=== PATIENT | male | born 1940 | race Caucasian/White ===

== ENCOUNTER 2016-11-25 10:30 | Outpatient (RCR) | payer MEDICARE, BC | END 2016-12-01 | disposition home or self-care (01) | LOC: STH 10:30 | DX: R47.1 Dysarthria and anarthria (principal); I25.10 Atherosclerotic heart disease of native coronary artery without angina pectoris; R48.2 Apraxia | CPT/HCPCS: 92523; G8999; G9186 ==

== ENCOUNTER 2017-01-06 11:06 | Outpatient (RCR) | payer MEDICARE, BC | END 2017-01-31 | disposition home or self-care (01) | LOC: STH 11:06 | DX: R47.1 Dysarthria and anarthria (principal); R48.2 Apraxia | CPT/HCPCS: 92507; G9158; G9186 ==